=== PATIENT | female | born 1995 | race Caucasian/White ===

== ENCOUNTER 2020-01-21 16:32 | Emergency (ER) | payer MEDICAID, SELFPAY ==
[~2020-01-21] VITALS: Ht 157.5 cm; Wt 47.6 kg
[2020-01-21 17:54] VITALS: Ht 157.5 cm; Wt 47.6 kg
[2020-01-21 17:56] VITALS: BP 103/64
== END 2020-01-21 17:56 | disposition home or self-care (01) ==
LOC: ED 16:32
DX: U07.1 COVID-19 (principal); B34.9 Viral infection, unspecified
CPT/HCPCS: U0003-CS